=== PATIENT | male | born 1960 | race Caucasian/White ===

== ENCOUNTER 2017-09-24 13:01 | Emergency (ER) | payer OTHER, SELFPAY ==
[2017-09-24 13:03] VITALS: BP 126/77; PULSE 77; RESP 22; TEMP 36; O2SAT 96; BMI 29.0
--- NOTE | 2017-09-24 13:53 | ED.DCSUM_ITS ---
- ER Visit Summary Date of Service: 09/24/17 Chief Complaint: Right ankle laceration History of Present Illness: The patient is a 56 M who broke a glass on his right ankle the cause incision. He notes a large amount of bleeding. Tetanus has been in the last 10 years. No other injuries. Physical Examination: Afebrile vital signs are stable Gen: Well-nourished well-developed Head: Normocephalic atraumatic Eyes: Perrl EOMI ENT: TMs clear no rhinorrhea moist mucous membranes Neck: Supple no lymphadenopathy no JVD nontender CVS: Regular rate rhythm no murmurs normal S1-S2 Respiratory: No distress clear to auscultation bilaterally chest nontender Abdomen: Soft nontender nondistended normal bowel sounds no masses Back: Nontender Extremity: There is a 1.5 cm linear laceration lateral aspect just superior to the lateral malleolus. There is small arteriole bleeding. Skin: Normal color no rash Neuro: alert orientated ?3 CN II-XII intact normal strength sensation reflexes gait cerebellar Psych: Normal affect normal mood Emergency Department Course and Treatment: Direct pressure was applied for about 15 minutes. Wound was locally anesthetized using 1% lidocaine with epinephrine. #3 4-0 simple interrupted Ethilon sutures were applied. Wound was further injected with lidocaine with epi. A compressive dressing consisting of sterile gauze Vicente wrap and Surgicel was applied. Wound care discussed with patient. Stitches out 10-14 days. Impression: 1. 1.5 cm right ankle laceration with repair This note was generated with [employer] dictation software. It may contain incorrect words, spelling, and punctuation that were not noted in review of the chart prior to signing ED Disposition - Plan for ED Patient: Chief Complaint: Laceration Instructions: ED Laceration Foot Referrals: Keara Purdy MD [STAFF PHYSICIAN] - 10-14 Days suture removal
== END 2017-09-24 14:12 | disposition home or self-care (01) ==
PROVIDERS: Emergency Provider Emergency Medicine
DX: S91.011A Laceration without foreign body, right ankle, initial encounter (principal); W25.XXXA Contact with sharp glass, initial encounter; Y93.89 Activity, other specified; Y92.89 Other specified places as the place of occurrence of the external cause; Y99.8 Other external cause status
CPT/HCPCS: 12001; 99283